=== PATIENT | male | born 1985 | race Caucasian/White ===

== ENCOUNTER 2022-05-31 20:19 | Inpatient (IN) | payer MEDICAID, SELFPAY ==
[2022-05-31 20:20] VITALS: BP 141/88; PULSE 122; RESP 18; TEMP 36.8; O2SAT 100; BMI 21.5
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
[2022-05-31 20:59] VITALS: BP 141/88; PULSE 122; RESP 18; TEMP 36.8; O2SAT 100
--- NOTE | 2022-05-31 21:35 | RAD_ITS ---
EXAM: XR RIGHT KNEE COMPLETE, 4 OR MORE VIEWS CLINICAL INDICATION: infected right knee TECHNIQUE: Four or more views of the right knee. This report was created using [employer] report generation technology. COMPARISON: None. FINDINGS: BONES/JOINTS: Unremarkable. No acute fracture. No subluxation. Normal alignment. Preservation of the joint space. No sclerotic or destructive changes observed. SOFT TISSUES: There is soft tissue swelling anterior to the patella. No radiopaque foreign body. RAD/Knee 4 or More Views IMPRESSION: Soft tissue swelling anterior to the patella which may be due to cellulitis. There are no osseous abnormalities. Electronically Signed: Wayne Moreno MD at 21:52 EST ,
[2022-05-31 21:44] LABS: Anion Gap 4 (5-15); BUN 9 mg/dL (7-18); BUN/Creat Ratio 14.5 RATIO (10-20); Calcium,Total 8.3 mg/dL (8.5-10.1); Chloride 106 mmol/L (98-107); Creatinine, Serum 0.62 mg/dL (0.70-1.30); EST Glomerular Filtration Rate 154 mL/min (>60); Est Glom Filt Rate - Afr Amer 187 mL/min (>60); Estimated Creatinine Clearance 156.99 ml/min; Glucose 111 mg/dL (74-106); Potassium 4.1 mmol/L (3.5-5.1); Sodium Level 136 mmol/L (136-145)
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
[2022-05-31 22:33] LABS: Erythrocyte Sedimentation Rate 45 mm/hr (0-20)
[2022-05-31 22:35] LABS: Absolute Lymphocyte Count 1.64 X10^3/uL (0.83-4.51); Absolute Neutrophil Count 5.1 X10^3/uL (2.0-7.7); Basophil# 0.03 X10^3/uL; Basophil% 0.4 % (0-1); Hematocrit 35.9 % (40-54); Hemoglobin 11.3 g/dL (13.0-16.5); Lymphocyte # 1.64 X10^3/ul (0.83-4.51); Lymphocyte % 21.4 % (19-41); Mean Corp Hgb Conc 31.5 g/dL (32-36); Mean Corpuscular Volume 89.1 fL (80-94); Mean Platelet Vol. 11.1 fl (6.2-12.0); Monocyte# 0.82 X10^3/uL; Monocyte% 10.7 % (0-10); NRBC Flagged by Analyzer 0 % (0-5); Neutrophil # 5.14 X10^3/uL (2.7-7.7); Neutrophil % 67.1 % (47-70); Platelet Count 189 K/mm3 (150-450); RBC Distribution Width CV 13.6 % (11.6-14.6); RBC Distribution Width SD 44.7 fl (35.1-43.9); Red Blood Count 4.03 M/mm3 (4.6-6.2); White Blood Count 7.7 K/mm3 (4.4-11.0)
[2022-05-31 22:37] VITALS: BP 122/77; PULSE 95; RESP 18; TEMP 37.2; O2SAT 99
[2022-05-31 23:06] VITALS: BP 123/79; PULSE 90; RESP 16; TEMP 37.3; O2SAT 98
[2022-05-31 23:07] VITALS: BMI 21.2
[2022-05-31] MEDS: 0.9% Saline Lock 10 ML Syringe IV (23:44)
[2022-06-01] VITALS (12 sets, daily range): BP systolic 99–126; BP diastolic 50–83; PULSE 76–97; RESP 16–18; TEMP 36.6–37.2; O2SAT 95–99
--- NOTE | 2022-06-01 00:13 | NURSING ---
RECEIVED PAPER WORK FROM [facility] ABOUT PT HAVING PARAPHERNALIA . CONFRONTED PT AND ASKED IF HE HAD ANY ILLEGAL ITEMS WITH HIM AND THAT WE WOULD NOT TOLERATE HIM USING HERE. OFFERED TO LOCK ANY ITEMS UP BUT HE REFUSED.PT STATED THAT IS NOT HOW IT HAPPENED AND DID NOT TALK ABOUT IT ANY FURTHER.
--- NOTE | 2022-06-01 00:30 | PCM.RX.CS ---
Consult Pharmacy has been consulted to manage selected antiobiotic: Vancomycin Type of Consult: New start Prior Doses of Antibiotics Received/Current Regimen: Medications Vancomycin HCl 750 mg/ Sodium (Chloride) 265 mls @ 250 mls/hr IV Q8H JOZFE Vancomycin HCl 1,750 mg/ (Sodium Chloride) 535 mls @ 250 mls/hr IV X1 ONE Stop: 06/01/22 01:08 Last Admin: 05/31/22 23:44 Dose: 250 mls/hr Labs: Sodium 136 mmol/L (136-145) 05/31/22 21:25 Potassium 4.1 mmol/L (3.5-5.1) 05/31/22 21:25 Chloride 106 mmol/L (98-107) 05/31/22 21:25 Carbon Dioxide 26.0 mmol/L (21.0-32.0) 05/31/22 21:25 Anion Gap 4 (5-15) L 05/31/22 21:25 BUN 9 mg/dL (7-18) 05/31/22 21:25 Creatinine 0.62 mg/dL (0.70-1.30) L 05/31/22 21:25 Est GFR (MDRD) Af Amer 187 mL/min (>60) 05/31/22 21:25 Est GFR (MDRD) Non-Af 154 mL/min (>60) 05/31/22 21:25 BUN/Creatinine Ratio 14.5 RATIO (10-20) 05/31/22 21:25 Glucose 111 mg/dL (74-106) H 05/31/22 21:25 Weight used for dosin kg Estimated Creatinine Clearance: 157 Goal Trough: 15-20 mcg/mL Pharmacy Plan for Drug Dosing: Initial vancomycin IV loading dose of 1750mg was given. Continuing dosing of 750mg q8h, with a trough to be drawn prior to 4th dose. Pharmacy Service will continue to monitor and adjust dosing as required. Follow-Up Labs: Trough Vancomycin Labs to be done on [date and time ordered]: 06/01/22 @2300
[2022-06-01] MEDS: 0.9% Saline Lock 10 ML Syringe IV (05:14)
--- NOTE | 2022-06-01 11:30 | NURSING ---
1100 report given to OR, pt stable, vvs, no pain Charles Hughes RN
--- NOTE | 2022-06-01 12:06 | PN.ORTHO_ITS ---
Subjective Subjective PAD 1 right knee septic bursitis, plan for I and D. Objective Data Objective Data Vital Signs: Vital Signs Temp Pulse Resp BP Pulse Ox O2 Del Method 98 F 91 18 110/60 96 Room Air 06/01/22 09:08 06/01/22 09:10 06/01/22 09:10 06/01/22 09:08 06/01/22 09:10 06/01/22 09:10 Oxygen Delivery Method Room Air Weight: 147 lb 11.355 oz Body Mass Index (BMI) 21.2 Intake & Output: Intake and Output for Last 24 Hours 05/30/22 05/31/22 06/01/22 23:59 23:59 23:59 Intake Total 113.25 / 233.25 973 / 973 Balance 113.25 / 233.25 973 / 973 Lab / Micro Data Attestation: I reviewed the patient's lab results. Result Diagrams: 05/31/22 22:14 05/31/22 21:25 Labs: Laboratory Results - last 24 hr 05/31/22 21:25: WBC Cancelled, Corrected WBC Cancelled, RBC Cancelled, Hgb Cancelled, Hct Cancelled, MCV Cancelled, MCH Cancelled, MCHC Cancelled, RDW Std Deviation Cancelled, RDW Coeff of Tc Cancelled, Plt Count Cancelled, MPV Cancelled, Immature Gran % (Auto) Cancelled, Neut % (Auto) Cancelled, Lymph % (Auto) Cancelled, [place] % (Auto) Cancelled, Eos % (Auto) Cancelled, Baso % (Auto) Cancelled, Absolute Neuts (auto) Cancelled, Absolute Lymphs (auto) Cancelled, Total Counted Cancelled, Neutrophils % (Manual) Cancelled, Band Neutrophils % Cancelled, Lymphocytes % (Manual) Cancelled, Monocytes % (Manual) Cancelled, Eosinophils % (Manual) Cancelled, Basophils % (Manual) Cancelled, Metamyelocytes % Cancelled, Myelocytes % Cancelled, Promyelocytes % Cancelled, Blast Cells % Cancelled, Plasma Cell % (Manual) Cancelled, Other Cells % Cancelled, Nucleated RBC % Cancelled, Nucleated RBCs/100 WBC Cancelled, Differential Comment Cancelled, Diff Path Review Cancelled, Hypersegmented Neuts Cancelled, Atypical Lymphocytes Cancelled, Reactive Lymphocytes Cancelled, Smudge Cells Cancelled, Toxic Granulation Cancelled, Toxic Vacuolation Cancelled, Dohle Bodies Cancelled, Dago Rods Cancelled, Platelet Estimate Cancelled, Plt Morphology Comment Cancelled, RBC Morphology Cancelled, Polychromasia Cancelled, Hypochrom fouzia Cancelled, Poikilocytosis Cancelled, Basophilic Stippling Cancelled, Anisocytosis Cancelled, Microcytosis Cancelled, Macrocytosis Cancelled, Spherocytes Cancelled, Sickle Cells Cancelled, Target Cells Cancelled, Tear Drop Cells Cancelled, Ovalocytes Cancelled, Stomatocytes Cancelled, Li-[place] Bodies Cancelled, [place] Cells Cancelled, Bite Cells Cancelled, Crenated Cell Cancelled, Acanthocytes (Spur) Cancelled, Rouleaux Cancelled, Schistocytes Cancelled, ESR Cancelled 05/31/22 21:25: Sodium 136, Potassium 4.1, Chloride 106, Carbon Dioxide 26.0, Anion Gap 4 L, BUN 9, Creatinine 0.62 L, Estim Creat Clear Calc 156.99, Est GFR (MDRD) Af Amer 187, Est GFR (MDRD) Non-Af 154, BUN/Creatinine Ratio 14.5, Glucose 111 H, Calcium 8.3 L, C-React Prot Ext Range 88.80 H 05/31/22 22:14: WBC 7.7, RBC 4.03 L, Hgb 11.3 L, Hct 35.9 L, MCV 89.1, MCH 28.0, MCHC 31.5 L, RDW Std Deviation 44.7 H, RDW Coeff of Tc 13.6, Plt Count 189, MPV 11.1, Immature Gran % (Auto) 0.400, Neut % (Auto) 67.1, Lymph % (Auto) 21.4, M jet % (Auto) 10.7 H, Eos % (Auto) 0.0, Baso % (Auto) 0.4, Absolute Neuts (auto) 5.1, Absolute Lymphs (auto) 1.64, Nucleated RBC % 0, ESR 45 H Radiography Diagnostic Testing: Radiology Impression Knee X-Ray 05/31/22 21:35 IMPRESSION: Soft tissue swelling anterior to the patella which may be due to cellulitis. There are no osseous abnormalities. Electronically Signed: Wayne Moreno MD at 21:52 EST , Physical Exam Narrative right knee still warm and red Assessment & Plan Assessment/Plan (1) Septic prepatellar bursitis of right knee: PLAN: Proceed as booked.
--- NOTE | 2022-06-01 12:57 | PCM.OPRPT ---
Problems Associated Problem List Diagnoses (1) Septic prepatellar bursitis of right knee: Report of Operation Date of Procedure: 06/01/22 Pre-Operative Diagnosis: right knee septic prepatellar bursitis Post-Operative Diagnosis: same Surgery/Procedure Performed:: right knee arthroscopy, debridement, bursectomy Description of Surgical Findings:: 15 cc purulent material prepatellar bursa Surgeon: Angel Vera Type of Anesthesia: General and Local Anesthesiologist: Dot Bergeron Specimen's removed: 15cc purulent material Estimated Blood Loss (mL): 20 Description of Procedure: Patient brought to the operating room theater. Placed supine on the operating room table. General anesthesia induced. All bony prominences appropriately padded. Nonoperative leg with SCD. 30 inch tourniquet to the right lower extremity appropriately padded. Stress positioner used the patient's right side. IV antibiotics have been started and initiated already vancomycin and PIP/tazo. Right lower extremity prepped and draped in usual sterile fashion chlorhexidine-based prep solution allowing over 3 minutes drying time prior to draping. Preoperative timeout performed to confirm the site patient and surgery. Began by elevating the limb inflating the tourniquet to 250 mmHg. Did a preop procedure aspiration of the prepatellar bursa area 15 cc of obvious purulent material sent for gram stain culture and sensitivities aerobes and anaerobes. Made a small 1 inch anterior midline incision over the prepatellar bursa area at the anterior aspect of the knee. Carried dissection through skin and subcutaneous tissue. There is more purulent material expressed. I used a 5 L of normal saline irrigated through this area with removal of some small bursa as well as freshening of the anterior skin removing the skin slough. I then inserted the arthroscope into the intra-articular portion of the knee. Perform diagnostic arthroscopy. No obvious meniscus tears ACL was normal removed the ligamentum mucosum for better visualization. There is minor amount of synovitis in the suprapatellar pouch I gently debrided this and again irrigated the knee with the 4 L normal saline. No loose body. Arthroscopy pictures taken and saved throughout the case. Wound irrigated with Irrisept solution. Skin cleaned with wet and dry dressing. Tourniquet let down. Skin closed with 3-0 nylon suture in a simple fashion. 10 cc quarter percent bupivacaine used around the skin and subcutaneous tissue. Adaptic 4 x 4 gauze abdominal pad dressings and sterile 6 inch Ventura applied. Patient woken up from the general anesthetic transferred off the operating room table and taken to postanesthetic care unit in stable condition. All sponge needle instrument counts were correct no complications. Plan for patient weightbearing as tolerated gentle range of motion as tolerated. Readmission to the hospital for monitoring IV antibiotics and trending of inflammatory markers as well with goal to transition to oral antibiotics and obtain infectious disease consultation and follow-up on the cultures. Grafts/Implants Used: none Complications none Admit VTE Documentation VTE Present on Admission: No VTE Mechan Device Prophylaxis: SCD's Reason prophylaxis not ordered:: Treatment Not Indicated Procedures Musculoskeletal [id number]: Other Procedure See Report
[2022-06-01] MEDS: Ibuprofen 600 MG Tablet PO (22:34)
[2022-06-01 23:27] LABS: Vancomycin, Trough Level 13.8 ug/mL (5.0-15.0)
--- NOTE | 2022-06-01 23:47 | PCM.RX.CS ---
Consult Pharmacy has been consulted to manage selected antiobiotic: Vancomycin Type of Consult: Follow-up Prior Doses of Antibiotics Received/Current Regimen: Medications Vancomycin HCl (Vancomycin) 1,000 mg in 200 mls @ 200 mls/hr IV Q8H JOZEF Discontinued Medications Vancomycin HCl 750 mg/ Sodium (Chloride) 265 mls @ 250 mls/hr IV Q8H JOZEF Last Admin: 06/01/22 17:15 Dose: Infused Labs: Sodium 136 mmol/L (136-145) 05/31/22 21:25 Potassium 4.1 mmol/L (3.5-5.1) 05/31/22 21:25 Chloride 106 mmol/L (98-107) 05/31/22 21:25 Carbon Dioxide 26.0 mmol/L (21.0-32.0) 05/31/22 21:25 Anion Gap 4 (5-15) L 05/31/22 21:25 BUN 9 mg/dL (7-18) 05/31/22 21:25 Creatinine 0.62 mg/dL (0.70-1.30) L 05/31/22 21:25 Est GFR (MDRD) Af Amer 187 mL/min (>60) 05/31/22 21:25 Est GFR (MDRD) Non-Af 154 mL/min (>60) 05/31/22 21:25 BUN/Creatinine Ratio 14.5 RATIO (10-20) 05/31/22 21:25 Glucose 111 mg/dL (74-106) H 05/31/22 21:25 Vancomycin Trough 13.8 ug/mL (5.0-15.0) 06/01/22 22:50 Microbiology: Microbiology 06/01/22 13:37 Aspirate - Knee Gram Stain - Final Weight used for dosin kg Estimated Creatinine Clearance: 157 Goal Trough: 15-20 mcg/mL Pharmacy Plan for Drug Dosing: Vancomycin trough drawn 7 hours post-dose was 13.8, below the target range of 15-20. Will increase dose to 1000mg q8h and re-draw a trough prior to fourth dose of new regimen. Pharmacy Service will continue to monitor and adjust dosing as required. Follow-Up Labs: Trough Vancomycin Labs to be done on [date and time ordered]: 06/02/22 @2300
[2022-06-02] MEDS: Vancomycin IV 1,000 MG/200 ML BAG 200 MG IV ×3 (01:22→15:18)
[2022-06-02 01:24] VITALS: BP 120/78; PULSE 90; RESP 16; TEMP 36.8; O2SAT 97
--- NOTE | 2022-06-02 01:56 | NURSING ---
Track marr noted to bilat. upper extremities when attempting IV start. Pt admitted to IV drug use, using approx. 1 gram heroin daily. Pt made aware of [facility] program-asking pt if he would like to detox while here and pt refuses. SWATI added to worklist PRN. Primary RN present for conversation.
[2022-06-02 05:15] LABS: Hematocrit 37.4 % (40-54); Mean Corp Hgb Conc 32.1 g/dL (32-36); Mean Corpuscular Hgb 28.3 pg (27.0-32.0); Mean Corpuscular Volume 88.2 fL (80-94); Mean Platelet Vol. 11.6 fl (6.2-12.0); Platelet Count 216 K/mm3 (150-450); RBC Distribution Width CV 13.6 % (11.6-14.6); Red Blood Count 4.24 M/mm3 (4.6-6.2); White Blood Count 10.3 K/mm3 (4.4-11.0)
[2022-06-02 05:30] VITALS: BP 119/75; PULSE 89; RESP 16; TEMP 36.6; O2SAT 100
[2022-06-02 07:53] VITALS: BP 125/63; PULSE 87; RESP 16; TEMP 36.7; O2SAT 99
--- NOTE | 2022-06-02 08:26 | NURSING ---
Addendum entered by Clau Wright 06/02/22 09:04: apparently item at sink is an elf bar which is a type of vape Original Note: GAMEMASTER reports to said nurse some sort of vape in bathroom by sink. nurse to room. Appears to be vape-type apparatus by sink. placed in bio bag and locked up in bed drawer.
--- NOTE | 2022-06-02 10:17 | CASEMGMT ---
ROXANNE BELTRAN Assessment: Face to Face with pt for initial transition planning/care coordination assessment. ROXANNE BELTRAN introduced self and role at [facility], pt voices understanding and consents to assessment. Pt is A/O x4 and answers all questions appropriately at this time. Pt lying in bed in no distress. Care providers, pharmacy, and demographics verified/updated. Admitting Dx: R knee septic bursitis PCP:Pt denies and denies need for local healthcare directory pamphlet. Specialists:Pt denies. Preferred Pharmacy: [facility] on [address] in [place]. Insurance: [facility] Prescription Benefit: yes LNOK: Pt does not have any contacts listed and declines to provide. Living Arrangements: Pt lives with his parents in a single story house with no steps to enter. Pt reports he is I in ADL's and denies concerns at home. Transportation: Pt drives self and denies concerns with transportation. DME/HHC/SNF: Pt denies having any DME in the home, previous HHC or SNF stays. Pt states no concerns with going home at time of dc. Pt states he is up I in the room and is asking when he can go home. Made aware there is an ID c/s. Pt states no further concerns/needs. CM to follow. Advised pt to ask CM if any further question/concerns/needs arise, voices understanding. Pt Goal: Home Plan: Home
[2022-06-02 14:00] VITALS: BP 114/82; PULSE 100; RESP 16; TEMP 37.1; O2SAT 99
[2022-06-02] MEDS: Ondansetron 4 MG/2 ML Vial IV (14:05)
[2022-06-02] MEDS: 0.9% Saline Lock 10 ML Syringe IV (14:05)
[2022-06-02] MEDS: Cefazolin 2 GM in 0.9% Normal Saline 100 ML IV (14:07)
--- NOTE | 2022-06-02 14:28 | NURSING ---
during assessment and discussion of iv- pt states states he shoots up daily
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
--- NOTE | 2022-06-02 17:29 | NURSING ---
pt states he is leaving, he has already called his girlfriend to come pick him up. pt educated on risks/ramifications/MEDS/ symptoms meds etc. ordered. pt states i have a lot going on right now, i just need to be closer to home. if i need any treatment i will just go to [place] because it is closer. pt already dressed in his closed. vape pen unlocked from med drawer and given back to pt.
--- NOTE | 2022-06-02 20:13 | PCM.PN.ORT ---
Subjective Subjective POD 1 knee I and D and scope / bursectomy for septic prepatellar bursitis. Feels fine. Objective Data Objective Data Vital Signs: Vital Signs Temp Pulse Resp BP Pulse Ox O2 Del Method 98.8 F 100 16 114/82 H 99 Room Air 06/02/22 14:00 06/02/22 14:00 06/02/22 14:00 06/02/22 14:00 06/02/22 14:00 06/02/22 14:00 Oxygen Delivery Method Room Air Weight: 147 lb 11.355 oz Body Mass Index (BMI) 21.2 Intake & Output: Intake and Output for Last 24 Hours 05/31/22 06/01/22 06/02/22 23:59 23:59 23:59 Intake Total 113.25 / 233.25 1528 / 1528 921.50 / 921.50 Balance 113.25 / 233.25 1528 / 1528 921.50 / 921.50 Lab / Micro Data Attestation: I reviewed the patient's lab results. Result Diagrams: 06/02/22 04:33 05/31/22 21:25 Labs: Laboratory Results - last 24 hr 06/01/22 22:50: Vancomycin Trough 13.8 06/02/22 04:33: WBC 10.3, RBC 4.24 L, Hgb 12.0 L, Hct 37.4 L, MCV 88.2, MCH 28.3, MCHC 32.1, RDW Std Deviation 44.0 H, RDW Coeff of Tc 13.6, Plt Count 216, MPV 11.6 Micro: Microbiology 06/01/22 13:37 Aspirate - Knee Gram Stain - Final 06/01/22 13:37 Aspirate - Knee Wound Culture - Preliminary Staphylococcus aureus Physical Exam Const alert and no apparent distress Extremity Extremity Narrative: slightly less red and warm today, incision clean dry, sutures in placed. Able to range to over 90. no active drainage. less redness in leg. calf mild swelling but non tender. normal sens and motor function to foot, warm and well perfused. Assessment & Plan Assessment/Plan (1) Septic prepatellar bursitis of right knee: PLAN: POD 1 . I saw and assessed the patient today Jun 02 around noon. Changed the dressing. Saw with the charge nurse. Put on new silver mepilex. His IV had come out, so requested a new one be put in. Was called at 440pm requesting withdrawal protocol, which I asked the nurse to input. Also was wondering about a PICC line, which I declined, with plan to re-assess need tomorrow morning pending sensitivities. Subsequently called at 539pm nurse informed me patient left AMA, despite much stressing to the patient today that it is very important for treating his infection to stay in hospital, and continue IV antibiotics until we can step down to oral based on sensitivities. He gave me no indication he planned to leave. That being said, there have been multiple instances of the patient being found with drug paraphernalia. Also had called ID this morning and put a consult in over the weekend, but their office closed today.
== END 2022-06-02 17:36 | disposition left against medical advice (07) | DRG 313 ==
LOC: ED 22:04 → MS3 22:58
PROVIDERS: Admitting Provider Orthopaedic Surgery Sports Medicine; Emergency Provider Emergency Medicine; Visit Provider Orthopaedic Surgery Sports Medicine
PROC: 0MBN0ZZ Excision of Right Knee Bursa and Ligament, Open Approach (ICD-10-PCS; CPT 29870; principal; 2022-06-01 11:30)
DX: M71.161 Other infective bursitis, right knee (principal); B19.20 Unspecified viral hepatitis C without hepatic coma; F17.210 Nicotine dependence, cigarettes, uncomplicated; B95.62 Methicillin resistant Staphylococcus aureus infection as the cause of diseases classified elsewhere; G89.29 Other chronic pain; V29.99XA Rider (driver) (passenger) of other motorcycle injured in unspecified traffic accident, initial encounter; Z53.29 Procedure and treatment not carried out because of patient's decision for other reasons
CPT/HCPCS: 36415; 73564; 80048; 80202; 85025; 85027; 85652; 86140; 87015; 87070; 87075; 87077; 87102; 87116; 87186; 87205; 87206; 99252; 99284; 99406; J7040; J7050; A4216; G0463; J0295; J2405

== ENCOUNTER 2022-09-17 15:59 | Emergency (ER) | payer MEDICAID, SELFPAY ==
[2022-09-17 16:00] VITALS: BP 133/90; PULSE 116; RESP 15; TEMP 36.5; O2SAT 98; BMI 20.6
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
== END 2022-09-17 16:35 | disposition left against medical advice (07) ==
PROVIDERS: Emergency Provider Emergency Medicine; Visit Provider Emergency Medicine
DX: F11.10 Opioid abuse, uncomplicated (principal); F17.210 Nicotine dependence, cigarettes, uncomplicated
CPT/HCPCS: 99281; 99282